=== PATIENT | male | born 1985 | race African-American/Black ===

== ENCOUNTER → 2024-06-15 10:36 | Outpatient (REF) | payer OTHER, SELFPAY ==
[2024-06-15 18:29] LABS: Hepatitis B Surface Antibody Negative
[2024-06-15 19:13] LABS: Rubella Positive
[2024-06-17 19:50] LABS: Quantiferon Plus TB2 minus NIL 0.01 IU/mL (<=0.34); Quantiferon TB Gold Plus Negative (Negative)
== END ==
LOC: REG 10:36
PROVIDERS: ATTENDING PHYSICIAN Nurse Practitioner Family
DX: Z23 Encounter for immunization (principal)
CPT/HCPCS: 36415; 86480; 86706; 86735; 86762; 86765; 86787